=== PATIENT | male | born 1990 | race Caucasian/White ===

== ENCOUNTER 2017-03-18 01:14 | Emergency (ER) | payer SELFPAY ==
[2017-03-18 01:37] VITALS: RESP 18; TEMP 96.9
[2017-03-18] MEDS ORDERED: diphenhydrAMINE 25 MG CAPSULE PO ONE (01:38)
--- NOTE | 2017-03-18 01:56 | PDOC ---
Gen Adult / Medical Screen HPI - General Chief Complaint: General Medical Stated Complaint: LUMP TO BACK OF HEAD Date Seen by Provider: 03/18/17 Time Seen by Provider: 01:35 Source: POSITIVE: Patient Exam Limitations: POSITIVE: No limitations Nurse's Notes Reviewed & Considered: Yes - Indicators Temperature Between 95 and 101 Degrees: Yes Respirations Between 12 and 20: Yes Blood Pressure Between 100-165 (sys) and 60-100 (tobin): Yes Pulse Range Between 60-105 (100 for age > 60 years): Yes Severe Pain (Greater than 5/10 Reported): No Chest or Abdominal Pain: No Inability to Walk: No Pt Reports Active High Risk Cond. (TB/Hepatitis/HIV/Chemo): No Abnormal Mental Status: No - History of Present Illness Initial Comments: This is a 26-year-old male complaining of tender mass on the back of his head. Patient states that 2 days ago he began to develop a tender mass over the occiput. He denies any insect bites, no history of trauma. He states that he became an emergency tonight when he laid down on his pillow and his head was hurting where the area of concern was in contact with his pillow. He denies any headache, sore throat, no fever chills or sweats, no nausea vomiting or diarrhea, no hematuria dysuria, no rashes. Body Location Affected: REPORTS: Head Timing: REPORTS: Constant Duration: >24 hours (2 days) Similar Symptoms Previously: No Recent Care Received: REPORTS: Denies Any Prior Injuries Related to Current Complaint?: No - Patient Home Medications Home Medications: Home Medications NK [No Home Medications Reported] 03/18/17 - Patient Allergies Allergies/Adverse Reactions: Allergies Allergy/AdvReac Type Severity Reaction Status Date / Time Sulfa (Sulfonamide Allergy HIVES Verified 03/18/17 01:22 Antibiotics) Past Medical History - heen HEENT History: Denies History Cardiovascular History: Denies History Respiratory History: Denies History Gastrointestinal History: Denies History Genitourinary History: Denies History Endocrine History: Denies History Musculoskeletal History: Denies History Prosthesis or Implant: No Neurological History: Denies History Blood Disorders: Denies History Psychiatric History: Denies History Cancer History: Denies History In Past Year Been Physically Harmed or Verbally Threatened: No History of MDRO: No Tobacco Use: Current Every Day Smoker Alcohol Use: Rarely Substance Use Type: None Previous Surgical History: Yes Type / Date of Surgery: left 2nd digit Significant Family History: No pertinent family hx ROS Constitution: REPORTS: Denies Symptoms Cardiovascular: REPORTS: Denies Cardiac Symptoms Respiratory: REPORTS: Denies Resp Symptoms Neurological: REPORTS: Denies Neuro Symptoms Gastrointestinal: REPORTS: Denies GI Symptoms Endocrine: REPORTS: Denies Symptoms Musculoskeletal: REPORTS: Denies MS Symptoms Genitourinary: REPORTS: Denies Symptoms Eyes: REPORTS: Denies Symptoms ENT: REPORTS: Denies Symptoms Skin: REPORTS: Skin Lesions (Small tender bump on occiput.) Lympathic: REPORTS: Denies Lympathic Symptoms Immunologic: POSITIVE: Denies Symptoms Psychiatric: POSITIVE: Denies Psych Symptoms Gen Adult/Medical Screen Exam - General Appearance General Appearance: POSITIVE: Alert, Cooperative, No Acute Distress, No Evidence of Trauma - HEENT HEENT: POSITIVE: Eyes Inspection Nml, Ears Inspection Nml, Nose Inspection Nml, Oral/Dental Inspect. Nml, Pharynx Inspect. Nml, PERRL, EOMI, Other (Small 5 mm bump that is non-erythematous, mildly tender to palpation over the occiput.) - Pupils Pupil Size: 5 mm: Bilateral - Neck Neck: POSITIVE: Normal Inspection - Respiratory Respiratory: POSITIVE: No Respiratory Distress - Skin Skin: POSITIVE: Other (Small 5 mm tender and nonerythematous nonfluctuant mass over the occiput.) Procedures - Laceration/Wound Repair Did patient have a laceration repair: No Gen Adlt/Medical Scrn Progress - Patient's Progress Pain Medication Addressed: POSITIVE: No Re-Examine Time: 01:55 Status: POSITIVE: Improved MDM / ED Course: Patient was examined. He received 25 mg of Benadryl. Assessment: Tender skin nodule posterior occiput likely a completed on that is becoming infected versus insect bite. Plan: Discharge home Benadryl as needed follow-up with primary care physician tomorrow during office hours. - Consult Counseled: POSITIVE: Patient, Family, RE: DX, RE: Need for F/U Patient Care Time - Estimated PCT Patient Care Time (In Minutes): 10 Vital Signs - Recent Vital Signs Vital Signs: Vital Signs (Last 8 hours) Temp Pulse Resp BP Pulse Ox 03/18/17 01:15 96.9 F 53 L 18 118/78 97 Discharge Clinical Impression: Skin nodule Discharge Disposition: Discharged to Home Condition: Good Patient Instructions Given at Discharge: Connective Tissue Disorders (ED)
== END 2017-03-18 02:02 | disposition home or self-care (01) ==
LOC: ER 01:14
DX: R22.0 Localized swelling, mass and lump, head (principal); R51 Headache; Z72.0 Tobacco use
CPT/HCPCS: 99282 ×2; Q0163